=== PATIENT | male | born 1955 | race Caucasian/White ===

== ENCOUNTER → 2017-12-15 16:32 | Outpatient (CLI) | payer OTHER, SELFPAY ==
--- NOTE | 2017-12-15 16:47 | RAD_ITS ---
STUDY: X-RAY - RIGHT FOOT CLINICAL: Male, 62 years old. Pain TECHNIQUE: 3 view(s) of the foot. COMPARISON: None. FINDINGS: Normal talus, calcaneus, and tarsal bones. Normal visualized subtalar, talonavicular, calcaneocuboid, tarsal and tarsometatarsal articulations. Normal metatarsi. There is degenerative arthrosis of the metatarsophalangeal joint of the hallux . Normal tibial and fibular sesamoid bones. Normal interphalangeal joint of the great toe. Normal phalanges of the great toe. Normal second through fifth metatarsophalangeal joints. Normal interphalangeal joints and phalanges of the lesser toes. The soft tissue structures are unremarkable. There is no demonstrated fracture. RAD/Foot min 3 Views IMPRESSION: No acute fracture or dislocation. Prominent degenerative changes of the first metatarsophalangeal joint. Electronically Signed: Honorio Sabillon MD at 23:51 EDT , Service support ,
[2017-12-15 18:04] LABS: Anion Gap 10 (5-15); BUN 16 mg/dL (7-18); BUN/Creat Ratio 13.9 RATIO (10-20); Calcium,Total 9.5 mg/dL (8.5-10.1); Chloride 110 mmol/L (98-107); Creatinine, Serum 1.15 mg/dL (0.70-1.30); EST Glomerular Filtration Rate 69 mL/min (>60); Est Glom Filt Rate - Afr Amer 83 mL/min (>60); Glucose 91 mg/dL (74-106); Potassium 4.2 mmol/L (3.5-5.1); Sodium Level 143 mmol/L (136-145); Uric Acid 6.2 mg/dL (3.5-7.2)
== END ==
LOC: MFPLAB 16:33 → MTRAD 16:36
PROVIDERS: Family Provider Family Medicine; PCP Family Medicine; Visit Provider Family Medicine
DX: M19.071 Primary osteoarthritis, right ankle and foot (principal)
CPT/HCPCS: 36415; 73630; 80048; 84550

== ENCOUNTER → 2019-10-26 09:11 | Outpatient (CLI) | payer OTHER, SELFPAY ==
[2019-10-26 10:53] LABS: Anion Gap 5 (5-15); BUN 16 mg/dL (7-18); BUN/Creat Ratio 18.8 RATIO (10-20); Calcium,Total 8.7 mg/dL (8.5-10.1); Chloride 110 mmol/L (98-107); Cholesterol 166 mg/dL (200); Creatinine, Serum 0.85 mg/dL (0.70-1.30); EST Glomerular Filtration Rate 97 mL/min (>60); Est Glom Filt Rate - Afr Amer 117 mL/min (>60); Glucose 108 mg/dL (74-106); High Density Lipoprotein 31 mg/dL; PSA,Total - Annual Screen 0.62 ng/mL (0.00-4.00); Potassium 4.2 mmol/L (3.5-5.1); Sodium Level 141 mmol/L (136-145); Triglycerides 202 mg/dL; Very Low Density Lipoprotein 40 mg/dL (5-40)
== END ==
PROVIDERS: PCP Family Medicine; Referring Provider Family Medicine; Visit Provider Family Medicine
DX: Z00.00 Encounter for general adult medical examination without abnormal findings (principal)
CPT/HCPCS: 36415; 80048; 80061; 84153; 84403; G0103

== ENCOUNTER → 2020-06-23 15:19 | Outpatient (CLI) | payer OTHER, SELFPAY ==
--- NOTE | 2020-06-23 15:29 | MRI_ITS ---
STUDY: MRI BRAIN WITH AND WITHOUT CONTRAST (ATTENTION INTERNAL AUDITORY CANALS - I.A.C.''s) REASON FOR EXAM: Male, 64 years old. Left hearing loss for 5 years TECHNIQUE: Standardized multiplanar fat and water weighted pulse sequences were obtained. Yes YES contrast material was administered intravenously for the contrast portion of the examination. COMPARISON: None. FINDINGS: Normal bilateral temporal bones. Normal bilateral internal auditory canals. There is no demonstrated intracanalicular or cisternal vestibular schwannoma (acoustic neuroma). There is no enhancement of the bilateral VIIth or VIIIth cranial nerves. Normal bilateral cochlea, vestibules and semicircular canals. There is mild cerebral atrophy with widening of the extra-axial spaces and ventricular dilatation. There are a limited number of small white matter hyperintensities, distributed throughout the deep white matter tracts of the cerebral hemispheres, consistent with mild chronic white matter ischemic changes. There is no evidence for recent intracranial ischemia or other cause of cytotoxic edema on diffusion weighted imaging (DWI). No focal brain parenchymal lesion or abnormal or suspicious enhancement of the brain parenchyma or or meninges. Normal bilateral basal ganglia. Normal thalami. Normal flow voids within the major intracranial circulation suggesting patency by spin echo criteria. Normal venous enhancement. There is no enhancing intra-axial or extra-axial abnormality. There is no extra-axial fluid accumulation. Normal sella turcica, pituitary gland, infundibular stalk, optic chiasm and hypothalamus. Normal tectal plate and pineal gland. Normal midbrain, lucinda and medulla. Normal cerebellum. Normal basal cisterns. No demonstrated orbital abnormality, within the constraints of a routine brain study. There is moderate to severe bilateral ethmoid sinusitis. Mild mucosal thickening is present in the bilateral sphenoid and maxillary sinuses. Normal calvarium and skull base. Normal visualized soft tissue structures. Normal visualized upper cervical spine. MRI/Brain W/WO Contrast IMPRESSION: 1. Normal unenhanced and enhanced MRI of the bilateral internal auditory canals (I.A.C''s). 2. No focal brain parenchymal lesion or abnormal or suspicious enhancement of the brain parenchyma or or meninges. 3. Mild chronic ischemic changes. 4. No demonstrated acute infarct. Electronically Signed: Ramon Cat MD at 23:52 EST , Service support ,
[2020-06-23 15:56] LABS: CREATININE FINGERSTICK 1.1 mg/dL (0.70-1.30); EGFR FINGERSTICK > 60.0000 mL/min (>60)
== END ==
PROVIDERS: PCP Family Medicine; Referring Provider Otolaryngology Otolaryngology/Facial Plastic Surgery; Visit Provider Otolaryngology Otolaryngology/Facial Plastic Surgery
DX: H90.3 Sensorineural hearing loss, bilateral (principal)
CPT/HCPCS: 70553

== ENCOUNTER 2021-08-03 13:48 | Outpatient (CLI) | payer OTHER, SELFPAY ==
[2021-08-03 16:22] LABS: Vitamin D,25 Hydroxy 19.2 ng/mL
[2021-08-03 16:24] LABS: Anion Gap 4 (5-15); BUN 14 mg/dL (7-18); BUN/Creat Ratio 14.4 RATIO (10-20); Calcium,Total 9.3 mg/dL (8.5-10.1); Chloride 111 mmol/L (98-107); Cholesterol 169 mg/dL (200); Creatinine, Serum 0.97 mg/dL (0.70-1.30); EST Glomerular Filtration Rate 83 mL/min (>60); Est Glom Filt Rate - Afr Amer 100 mL/min (>60); Glucose 94 mg/dL (74-106); High Density Lipoprotein 32 mg/dL; PSA,Total - Annual Screen 0.86 ng/mL (0.00-4.00); Sodium Level 142 mmol/L (136-145); Triglycerides 129 mg/dL; Very Low Density Lipoprotein 26 mg/dL (5-40)
== END 2021-08-03 23:59 | disposition home or self-care (01) ==
PROVIDERS: PCP Family Medicine; Referring Provider Family Medicine; Visit Provider Family Medicine
DX: Z00.00 Encounter for general adult medical examination without abnormal findings (principal)
CPT/HCPCS: 36415; 80048; 80061; 82306; 84153; G0103

== ENCOUNTER → 2022-09-01 | Outpatient (CLI) | payer MEDICARE, OTHER, SELFPAY ==
[2022-09-01 10:32] LABS: Vitamin D,25 Hydroxy 55.9 ng/mL
[2022-09-01 10:34] LABS: Anion Gap 4 (5-15); BUN 20 mg/dL (7-18); BUN/Creat Ratio 20.8 RATIO (10-20); Chloride 108 mmol/L (98-107); Cholesterol 192 mg/dL (200); Creatinine, Serum 0.96 mg/dL (0.70-1.30); EST Glomerular Filtration Rate 83 mL/min (>60); Est Glom Filt Rate - Afr Amer 101 mL/min (>60); Glucose 102 mg/dL (74-106); High Density Lipoprotein 29 mg/dL; PSA,Total- Diagnostic 0.78 ng/mL (0.0-4.0); Sodium Level 140 mmol/L (136-145); Triglycerides 153 mg/dL; Very Low Density Lipoprotein 31 mg/dL (5-40)
== END | disposition home or self-care (01) ==
PROVIDERS: PCP Family Medicine; Referring Provider Family Medicine; Visit Provider Family Medicine
DX: Z00.00 Encounter for general adult medical examination without abnormal findings (principal)
CPT/HCPCS: 36415; 80048; 80061; 82306; 84153

== ENCOUNTER → 2023-07-27 | Outpatient (CLI) | payer MEDICARE, OTHER, SELFPAY ==
[2023-07-27 10:38] LABS: Anion Gap 8 (5-15); BUN 18 mg/dL (7-18); BUN/Creat Ratio 18.6 RATIO (10-20); Calcium,Total 8.8 mg/dL (8.5-10.1); Chloride 109 mmol/L (98-107); Cholesterol 131 mg/dL (200); Creatinine, Serum 0.97 mg/dL (0.70-1.30); EST Glomerular Filtration Rate 83 mL/min (>60); Est Glom Filt Rate - Afr Amer 100 mL/min (>60); Glucose 113 mg/dL (74-106); High Density Lipoprotein 27 mg/dL; Potassium 4.1 mmol/L (3.5-5.1); Sodium Level 145 mmol/L (136-145); Triglycerides 132 mg/dL; Very Low Density Lipoprotein 26 mg/dL (5-40)
--- OUTSIDE RECORDS SUMMARY | 2023-07-27 10:38 | XMS RPT_ITS | CCD ---
Author Name Unknown Address [address] [place] [id number] Organization [facility] Results Test Name Value Interpretation Reference Range Facil ity Summary Purpose Family History No Family History Records Found Advance Directives No Advanced Directives Records Found Additional Source Comments (unrecognized sect ion and content) No Status Records Found INFORMATION SOURCE (unrecogn ized section and content) FOR RECORDS PERTAINING TO PATIENTS WHO ARE OR HAVE BEEN ENROLLED IN A CHEMICAL DEPENDENCY/SUBSTANCEABUSE PROGRAM, SOME INFORMATION MAY BE OMITTED. This clinical summary was aggregated from multiple sources. Caution should be exercised in using it in the provision of clinical care. This summary normalizes information from multiple sources, and as a consequence, information in this document may materially change the coding, format and clinical context of patient data. In addition, data may be omitted in some cases. CLINICAL DECISIONS SHOULD BE BASED ON THE PRIMARY CLINICAL RECORDS. [employer] provides no warranty or guarantee of the accuracy or completeness of information in this document.
== END | disposition home or self-care (01) ==
LOC: MFPLAB 09:25
PROVIDERS: PCP Family Medicine; Visit Provider Family Medicine
DX: Z00.00 Encounter for general adult medical examination without abnormal findings (principal); R79.89 Other specified abnormal findings of blood chemistry
CPT/HCPCS: 36415; 80048; 80061

== ENCOUNTER 2023-09-16 07:53 | Day surgery (SDC) | payer MEDICARE, OTHER, SELFPAY ==
[2023-09-16 08:15] VITALS: BP 121/56; PULSE 60; RESP 18; TEMP 36.8; O2SAT 96; BMI 29.6
[2023-09-16] MEDS: Lactated Ringers 1,000 ML 15 ML IV (08:23)
--- NOTE | 2023-09-16 08:44 | HP.PCM_ITS ---
HPI - General HPI Narrative ISELA DINH, is a 68 M who presents for screening colonoscopy. The patient says his last colonoscopy was about 15 years ago and was normal. He denies any abdominal pain or blood in stool. He has no family history of colon cancer. [facility] Medical History (Updated 09/14/23 @ 10:20 by Claudia Mccoy) Alcohol use Anxiety Arthritis Back pain Depression History of stress test Non-smoker Wears glasses Home Medications cholecalciferol (vitamin D3) 50 mcg (2,000 unit) capsule 50 mcg PO DAILY 07/29/23 [History Last Taken 09/14/23] hydroxyzine HCl 50 mg tablet 50 mg PO .QD PRN anxiety 07/29/23 [History Last Taken Unknown] sertraline 100 mg tablet 100 mg PO DAILY 07/29/23 [History Last Taken 09/14/23] calcium citrate 315 mg calcium-vitamin D3 6.25 mcg (250 unit) tablet (Citracal + Vitamin D Maximum) 1 tab PO DAILY 09/14/23 [History Last Taken 09/14/23] Allergy/AdvReac Type Severity Reaction Status Date / Time No Known Allergies Allergy Verified 09/16/23 08:12 Family History (Updated 07/29/23 @ 09:03 by Venecia Yee) Mother Breast cancer Surgical History (Updated 07/29/23 @ 09:02 by Venecia Yee) Hx of colonoscopy Social History (Updated 07/29/23 @ 10:13 by Venecia Yee) household members: spouse current occupational status: employed current occupation: Contractor Smoking Status: Never smoker details: Occasional alcohol substance use type: does not use Past Medical/Surgical History Planned Operation Planned Operative Procedure/s: COLONOSCOPY Previous Hospitalizations/Surgeries HX Hospitalizations: No Any Problems With Anesthesia: No You/Your Family Experience Fever (Hyperthermia) With Anes: No Cholinesterase deficiency: No Cardiovascular Hx Hypertension: No Respiratory Hx Sleep Apnea: Yes (DOESN'T WEAR MACHINE) CPAP: No BIPAP: No Hx Respiratory Tract Infection/Cold (presently): No Result (for STOP score): Positive Smoking Status: Never smoker Neurological Does patient have nerve stimulator: No Miscellaneous Recent Exposure to Contagious Disease: No Allergies No Known Allergies Allergy (Verified 09/16/23 08:12) Discharge Is Pt Admitted From a Care Home, or a Long-Term: No After D/C, Where Do you Plan to Go: Return Home Vital Signs Vital Signs Vital Signs: 09/16/23 08:14 09/16/23 08:15 Temperature 98.2 F Temperature Source Temporal Pulse Rate 60 Respiratory Rate 18 Respiratory Pattern Normal Blood Pressure 121/56 H Blood Pressure Mean 77 Blood Pressure Source Monitor Blood Pressure Position Semi-Fowlers Blood Pressure Location Right Arm Pulse Ox 96 Oxygen Delivery Method Room Air Weight Weight: 195 lb Body Mass Index (BMI) 29.6 Physical Exam Const alert and oriented x3 HEENT normocephalic Eyes PERRL Resp normal respiratory effort and normal air movement Cardio regular rate and regular rhythm GI soft to palpation, non-tender and non-distended Extremity normal to inspection Assessment & Plan Assessment/Plan (1) Encounter for screening for malignant neoplasm of colon: PLAN: I explained endoscopy in detail to the patient. I explained the risks including but not limited to stroke or heart attack with anesthesia, perforation of the GI tract, bleeding, infection. I explained that any of these could necessitate further emergency surgery. The patient understands and all questions were answered sufficiently. The patient wishes to proceed with procedure. Timur Sheldon MD Pager: [facility] [address] [place] [address], [address] [place] [address] Office: Surgery Risks - Colonoscopy Risks Include but are not Limited To: Risks include but are not limited to: Bleeding, perforation requiring further surgery, inability to complete colonoscopy requiring barium enema.
[2023-09-16 09:08] VITALS: BP 111/57; BP 121/56; PULSE 65; RESP 16; TEMP 36.2; O2SAT 93
[2023-09-16 09:10] VITALS: BP 110/57; BP 121/56; PULSE 64; RESP 16; O2SAT 92
--- NOTE | 2023-09-16 09:13 | OP.COLON_ITS ---
Patient Name: Tim Deluca Procedure Date: 09/16/2023 8:48 AM Date of : 1955 Age: 68 Procedure: Colonoscopy Indications: Screening for colorectal malignant neoplasm Providers: Timur Sheldno MD Referring MD: Alvarez Weber MD Medicines: Propofol per Anesthesia Patient Profile: This is a 68 year old male. Refer to note in patient chart for documentation of history and physical. Last Colonoscopy: more than 10 years ago. Complications: No immediate complications. Procedure: Pre-Anesthesia Assessment: - Prior to the procedure, a History and Physical was performed, and patient medications and allergies were reviewed. The patient's tolerance of previous anesthesia was also reviewed. The risks and benefits of the procedure and the sedation options and risks were discussed with the patient. All questions were answered, and informed consent was obtained. Prior Anticoagulants: The patient has taken no anticoagulant or antiplatelet agents. After reviewing the risks and benefits, the patient was deemed in satisfactory condition to undergo the procedure. After I obtained informed consent, the scope was passed under direct vision. Throughout the procedure, the patient's blood pressure, pulse, and oxygen saturations were monitored continuously. The pediatric colonoscope was introduced through the anus and advanced to the cecum, identified by appendiceal orifice and ileocecal valve. The colonoscopy was performed without difficulty. The patient tolerated the procedure well. The quality of the bowel preparation was good. The ileocecal valve, appendiceal orifice, and rectum were photographed. Scope In: 8:56:00 AM Scope Withdrawal Time 0 hours 6 minutes 5 seconds Scope Out: 9:05:13 AM Total Procedure Duration Time 0 hours 9 minutes 13 seconds Findings: The entire examined colon appeared normal on direct and retroflexion views. Impression: - The entire examined colon is normal on direct and retroflexion views. - No specimens collected. Recommendation: - Discharge patient to home. - Resume previous diet. - Continue present medications. - Repeat colonoscopy in 10 years for screening purposes. Procedure Code(s): --- Professional --- 25334, Colonoscopy, flexible; diagnostic, including collection of specimen(s) by brushing or washing, when performed (separate procedure) Diagnosis Code(s): --- Professional --- Z12.11, Encounter for screening for malignant neoplasm of colon CPT copyright 2021 [employer]. All rights reserved. The codes documented in this report are preliminary and upon disc ruler operator review may be revised to meet current compliance requirements. Timur Sheldon MD 09/16/2023 9:12:42 AM This report has been signed electronically. Number of Addenda: 0 Note Initiated On: 09/16/2023 8:48 AM
--- NOTE | 2023-09-16 09:13 | OP.CCLET_ITS ---
09/16/2023 Alvarez Weber MD [address] [place] [address] Re : Colonoscopy procedure for Tim Deluca Dear Dr. Weber This procedure was performed on Saturday, September 16, 2023. My impressions and recommendations are as follows: Impressions : - The entire examined colon is normal on direct and retroflexion views. - No specimens collected. Recommendations : - Discharge patient to home. - Resume previous diet. - Continue present medications. - Repeat colonoscopy in 10 years for screening purposes. My findings are described in the full procedure note, which is enclosed. If I can be of further assistance, please feel free to contact me at Doctor phone number(s): , Work: . Sincerely, Timur Sheldon MD 09/16/2023 9:12:42 AM This report has been signed electronically.
[2023-09-16 09:15] VITALS: BP 101/57; BP 121/56; PULSE 61; RESP 16; O2SAT 92
[2023-09-16 09:20] VITALS: BP 117/79; BP 121/56; PULSE 52; RESP 16; TEMP 36.1; O2SAT 94
[2023-09-16 09:40] VITALS: BP 121/56
== END 2023-09-16 09:52 | disposition home or self-care (01) ==
LOC: EN 07:54 → AC 07:56
PROVIDERS: PCP Family Medicine; Referring Provider Family Medicine; Visit Provider Surgery
PROC: 0DJD8ZZ Inspection of Lower Intestinal Tract, Via Natural or Artificial Opening Endoscopic (ICD-10-PCS; CPT 45378; principal; 2023-09-16 08:40)
DX: Z12.11 Encounter for screening for malignant neoplasm of colon (principal); F41.9 Anxiety disorder, unspecified; F32.A Depression, unspecified; Z79.899 Other long term (current) drug therapy
CPT/HCPCS: G0121; J7120; J2405

== ENCOUNTER → 2025-01-18 | Outpatient (CLI) | payer MEDICARE, OTHER, SELFPAY ==
[2025-01-18 15:58] LABS: Anion Gap 11 (5-15); BUN 17 mg/dL (4-19); BUN/Creat Ratio 18.1 RATIO (10-20); Calcium,Total 9.4 mg/dL (7.6-11.0); Carbon Dioxide 21.0 mmol/L (21.0-32.0); Chloride 108 mmol/L (98-108); Cholesterol 164 mg/dL (<=200); Glucose 122 mg/dL (70-99); Low Density Lipoprotein Calc. 102 mg/dL; PSA,Total - Annual Screen 1.62 ng/mL (0.02-4.00); Potassium 3.9 mmol/L (3.3-5.1); Triglycerides 164 mg/dL; Very Low Density Lipoprotein 33 mg/dL (5-40); cholesterol:hdl ratio screen 5.66
--- OUTSIDE RECORDS SUMMARY | 2025-01-18 16:31 | XMS RPT_ITS | CCD ---
Author Organization [facility] Care Team Providers Care Applications Specialist Name Role Phone Dr. Alvarez Weber Primary Care Provider [phone] Venecia Yee Attending Provider Unavailable Dr. Alvarez Weber Referring Provider Dr. Timur Sheldon Attending Provider Dr. Timur Sheldon Other Provider Alvarez Weber Primary Care Unavailable Alvarez Weber Referring Unavailable Timur Sheldon Consulting Unavailable Timur Sheldon Attending Unavailable Timur Sheldon Attending Unavailable Alvarez Weber Primary Care Unavailable Alvarez Weber Referring Unavailable Alvarez Weber Primary Care Unavailable Alvarez Weber Attending Unavailable Alvarez Weber Primary Care Unavailable Venecia Yee Attending Unavailable Medications Current Medications Medication Drug Class(es) Dates Sig (Normalized) Sig (Original) calcium citrate 1500 mg / cholecalciferol 250 unt oral tablet (1 source) Vitamin D Start: 09-14-2023 take 1 tablet by mouth once daily Calcium Citrate-Vitamin D3 (Citracal + D Maximum) 315 mg-6.25 mcg (250 unit) tablet Active 1 TABLET PO DAILY September 14, 2023 12:00am cholecalciferol 0.05 mg oral capsule (2 sources) Vitamin D Start: 07-29-2023 take 50 ug by mouth once daily Cholecalciferol (Vitamin D3) Active 50 MCG PO DAILY July 29, 2023 12:00am hydrOXYzine hydrochloride 50 mg oral tablet (2 sources) Antihistamine Start: 07-29-2023 take 50 mg by mouth once daily Hydroxyzine Hcl Active 50 MG PO .QD July 29, 2023 12:00am sertraline 100 mg oral tablet (2 sources) Serotonin Reuptake Inhibitor Start: 07-29-2023 take 100 mg by mouth once daily Sertraline Active 100 MG PO DAILY July 29, 2023 12:00am Problems Problem Classification Problem Date Documented Da te Episodic/Chronic Other screening for suspected conditions (not mental disorders or infectious disease) (5 sources) Patient encounter status; Translations: [Encounter for screening for malignant neoplasm of colon] Onset: 09-20-2023 07-29-2023 Episodic Results Test Name Value Interpretation Reference Range Facility Colonoscopy Reporton 024 Colonoscopy Report [facility] Medical Records Department [address] [place] [address] Colonoscopy Report MR#: [id number] Acct: [id number] Name: TIM DINH Rep #: [id number] : 1955 68 From: Timur Sheldon MD PCP: Dr. Alvarez Weber MD Status:[facility] Patient Name: Tim Dinh Procedure Date: 09/16/2023 8:48 AM Date of : 1955 Age: 68 Procedure: Colonoscopy Indications: Screening for colorectal malignant neoplasm Providers: Timur Sheldon MD Referring MD: Alvarez Weber MD Medicines: Propofol per Anesthesia Patient Profile: This is a 68 year old male. Refer to note in patient chart for documentation of history and physical. Last Colonoscopy: more than 10 years ago. Complications: No immediate complications. Procedure: Pre-Anesthesia Assessment: - Prior to the procedure, a History and Physical was performed, and patient medications and allergies were reviewed. The patient's tolerance of previous anesthesia was also reviewed. The risks and benefits of the procedure and the sedation options and risks were discussed with the patient. All questions were answered, and informed consent was obtained. Prior Anticoagulants: The patient has taken no anticoagulant or antiplatelet agents. After reviewing the risks and benefits, the patient was deemed in satisfactory condition to undergo the procedure. After I obtained informed consent, the scope was passed under direct vision. Throughout the procedure, the patient's blood pressure, pulse, and oxygen saturations were monitored continuously. The pediatric colonoscope was introduced through the anus and advanced to the cecum, identified by appendiceal orifice and ileocecal valve. The colonoscopy was performed without difficulty. The patient tolerated the procedure well. The quality of the bowel preparation was good. The ileocecal valve, appendiceal orifice, and rectum were photographed. Scope In: 8:56:00 AM Scope Withdrawal Time 0 hours 6 minutes 5 seconds Scope Out: 9:05:13 AM Total Procedure Duration Time 0 hours 9 minutes 13 seconds Findings: The entire examined colon appeared normal on direct and retroflexion views. Impression: - The entire examined colon is normal on direct and retroflexion views. - No specimens collected. Recommendation: - Discharge patient to home. - Resume previous diet. - Continue present medications. - Repeat colonoscopy in 10 years for screening purposes. Procedure Code(s): --- Professional --- 02711, Colonoscopy, flexible; diagnostic, including collection of specimen(s) by brushing or washing, when performed (separate procedure) Diagnosis Code(s): --- Professional --- Z12.11, Encounter for screening for malignant neoplasm of colon CPT copyright 2021 [employer]. All rights reserved. The codes documented in this report are preliminary and upon personal consultant review may be revised to meet current compliance requirements. Timur Sheldon MD 09/16/2023 9:12:42 AM This report has been signed electronically. Number of Addenda: 0 Note Initiated On: 09/16/2023 8:48 AM 09/16/23912 Date Timur Sheldon MD Cosigner Signature: Date (if indicated) CC: Dr. Timur Sheldon MD; Dr. Alvarez Weber MD Date Dictated: 09/16/2348 Date Transcribed: Cadd Instructor: AC Signed Normal [facility] Basic Metabolic Profile (BMP )on 07-27-2023 BUN/CRE 18.6 RATIO Normal 10-20 [facility] Comment on above: Performed By: #### L 500.4100, L500.2500 #### [facility] [address] [place], [place], [id number] [place],Total 8.8 mg/dL Normal 8.5-10.1 [facility] Comment on above: Performed By: #### L 500.4100, L500.2500 #### [facility] [address] [place], [address] Chloride [Moles/Vol] 109 mmol/L High 98-107 [facility] Comment on above: Performed By: #### L 500.4100, L500.2500 #### [facility] [address] [place], [address] CO2 [Moles/Vol] 28.0 mmol/L Normal 21.0-32.0 [facility] Comment on above: Performed By: #### L 500.4100, L500.2500 #### [facility] [address] [place], [address] Creatinine [Mass/Vol] 0.97 mg/dL Normal 0.70-1.30 [facility] Comment on above: Result Comment: The validity of the calculated GFR GFRAA in patients over 70 years has not been determined. Clinical correlation is essential. Performed By: #### L 500.4100, L500.2500 #### [facility] [address] [place], [address] EST GFR - AA 100 mL/min Normal >60 [facility] Comment on above: Result Comment: Afri can [place] GFR Calc Performed By: #### L 500.4100, L500.2500 #### [facility] [address] [place], [address] GAP 8 Normal 5-15 [facility] Comment on above: Performed By: #### L 500.4100, L500.2500 #### [facility] [address] [place], [address] GFR/1.73 sq M.predicted among non-blacks MDRD (S/P/Bld) [Vol rate/Area] 83 mL/min/{1.73_m2} Normal >60 [facility] Comment on above: Result Comment: Non- GFR Calc Performed By: #### L 500.4100, L500.2500 #### [facility] [address] [place], [address] Glucose [Mass/Vol] 113 mg/dL High 74-106 [facility] Comment on above: Result Comment: Fast ing Glucose result from 100 to 125 mg/dL suggests IMPAIRED HOMEOSTASIS per A.D.A. criteria. Performed By: #### L 500.4100, L500.2500 #### [facility] [address] [place], [address] Potassium [Moles/Vol] 4.1 mmol/L Normal 3.5-5.1 [facility] Comment on above: Performed By: #### L 500.4100, L500.2500 #### [facility] [address] [place], [address] Sodium [Moles/Vol] 145 mmol/L Normal 136-145 [facility] Comment on above: Performed By: #### L 500.4100, L500.2500 #### [facility] [address] [place], [address] Urea nitrogen [Mass/Vol] 18 mg/dL Normal 7-18 [facility] Comment on above: Performed By: #### L 500.4100, L500.2500 #### [facility] [address] [place], [address] Basophil percentageOrdered B y: Alvarez Weber on 07-27-2023 Chloride [Moles/Vol] 109 mmol/L 98-107 [facility] Cholesterol [Mass/Vol] 131 mg/dL <200 [facility] Comment on above: <200 mg/dL Desirable 200-240 mg/dL Borderline >240 mg/dL High Risk Glucose [Mass/Vol] 113 mg/dL 74-106 [facility] Comment on above: Fasting Glucose resu lt from 100 to 125 mg/dL suggests IMPAIRED HOMEOSTASIS per A.D.A. criteria. Potassium [Moles/Vol] 4.1 mmol/L 3.5-5.1 [facility] Sodium [Moles/Vol] 145 mmol/L 136-145 [facility] Triglyceride [Mass/Vol] 132 mg/dL <199 [facility] Comment on above: The drugs N-Acetylcy steine and Metamizole may falsely depress this assay.Serum Triglycerides Reference Interval Normal <150 mg/dL Borderline high 150 - 199 mg/dL High 200 - 499 mg/dL Very High > or = 500 mg/dL Laboratory - Chemistry and C hemistry - challengeOrdered By: Alvarez Weber on 07-27-2023 Cholesterol in HDL [Mass/Vol] 27 mg/dL >40 [facility] Comment on above: The drugs N-Acetylcy steine and Metamizole may falsely depress this assay. Reference Range HDL <40 mg/dL Low HDL Cholesterol HDL >or= 60 mg/dL High HDL Cholesterol Cholesterol in LDL [Mass/Vol] 78 mg/dL 0-130 [facility] CO2 [Moles/Vol] 28.0 mmol/L 21.0-32.0 [facility] Urea nitrogen/Creatinine [Mass ratio] 18.6 mg/mg 10-20 [facility] Lipid Profileon 07-27-2023 Cholesterol [Mass/Vol] 131 mg/dL Normal 200 [facility] Comment on above: Result Comment: <200 mg/dL Desirable 200-240 mg/dL Borderline >240 mg/dL High Risk Performed By: #### L 500.4100, L500.2500 #### [facility] [address] [place], [address] Cholesterol in HDL [Mass/Vol] 27 mg/dL Low [facility] Comment on above: Result Comment: The drugs N-Acetylcysteine and Metamizole may falsely depress this assay. Reference Range HDL <40 mg/dL Low HDL Cholesterol HDL >or= 60 mg/dL High HDL Cholesterol Performed By: #### L 500.4100, L500.2500 #### [facility] [address] [place], [address] Cholesterol in LDL [Mass/Vol] 78 mg/dL Normal 0-130 [facility] Comment on above: Performed By: #### L 500.4100, L500.2500 #### [facility] [address] [place], [address] Cholesterol in VLDL [Mass/Vol] 26 mg/dL Normal 5-40 [facility] Comment on above: Performed By: #### L 500.4100, L500.2500 #### [facility] [address] [place], [address] Triglyceride [Mass/Vol] 132 mg/dL Normal [facility] Comment on above: Result Comment: The drugs N-Acetylcysteine and Metamizole may falsely depress this assay. Serum Triglycerides Reference Interval Normal <150 mg/dL Borderline high 150 - 199 mg/dL High 200 - 499 mg/dL Very High > or = 500 mg/dL Performed By: #### L 500.4100, L500.2500 #### [facility] [address] [place], [address] No Panel InformationOrdered By: Alvarez Weber on 07-27-2023 Estimated GFR (MDRD) Amer 100 mL/min >60 [facility] Comment on above: GFR Calc Estimated GFR (MDRD) Non-Af Amer 83 mL/min >60 [facility] Comment on above: Non- GFR Calc VLDL Cholesterol 26 mg/dL 5-40 [facility] Serum or plasma calcium erick urement (mass/volume)Ordered By: Alvarez Weber on 07-27-2023 Calcium [Mass/Vol] 8.8 mg/dL 8.5-10.1 [facility] Serum or plasma creatinine m easurement (mass/volume)Ordered By: Alvarez Weber on 07-27-2023 Creatinine [Mass/Vol] 0.97 mg/dL 0.70-1.30 [facility] Comment on above: The validity of the calculated GFR & GFRAA in patients over 70 years has not been determined. Clinical correlation is essential. Serum or plasma urea nitroge n measurement (mass/volume)Ordered By: Alvarez Weber on 07-27-2023 Urea nitrogen [Mass/Vol] 18 mg/dL 7-18 [facility] Thin prep Papanicolaou smear with manual screeningOrdered By: Alvarez Weber on 07-27-2023 Thin prep Papanicolaou smear with manual screening 8 5-15 [facility] Basophil percentageOrdered B y: Dr. Weber on 09-01-2022 Chloride [Moles/Vol] 108 mmol/L 98-107 [facility] Cholesterol [Mass/Vol] 192 mg/dL <200 [facility] Comment on above: <200 mg/dL Desirable 200-240 mg/dL Borderline >240 mg/dL High Risk Glucose [Mass/Vol] 102 mg/dL 74-106 [facility] Comment on above: Fasting Glucose resu lt from 100 to 125 mg/dL suggests IMPAIRED HOMEOSTASIS per A.D.A. criteria. Potassium [Moles/Vol] 4.0 mmol/L 3.5-5.1 [facility] Sodium [Moles/Vol] 140 mmol/L 136-145 [facility] Triglyceride [Mass/Vol] 153 mg/dL <199 [facility] Comment on above: The drugs N-Acetylcy steine and Metamizole may falsely depress this assay.Serum Triglycerides Reference Interval Normal <150 mg/dL Borderline high 150 - 199 mg/dL High 200 - 499 mg/dL Very High > or = 500 mg/dL Laboratory - Chemistry and C hemistry - challengeOrdered By: Dr. Weber on 09-01-2022 CO2 [Moles/Vol] 28.0 mmol/L 21.0-32.0 [facility] Urea nitrogen/Creatinine [Mass ratio] 20.8 mg/mg 10-20 [facility] No Panel InformationOrdered By: Dr. Weber on 09-01-2022 Estimated GFR (MDRD) Amer 101 mL/min >60 [facility] Comment on above: GFR Calc Estimated GFR (MDRD) Non-Af Amer 83 mL/min >60 [facility] Comment on above: Non- GFR Calc Prostate Specific Antigen Total 0.78 ng/mL 0.0-4.0 [facility] Comment on above: This test was perfor med using the TPSA assay method for the[employer] chemistry system. Values obtained with differentassay methods cannot be used interchangably.When changing PSA assays in the course of monitoring apatient, additional sequential testing should be carriedout to confirm baseline values. Vitamin D 25-Hydroxy 55.9 ng/mL [facility] Comment on above: Vitamin D 25(OH) Sta tus Range Deficiency <20 ng/mL (50nmol/L) Insufficiency 20 - 30 ng/mL (50 - 75 nmol/L) Sufficiency 30 - 100 ng/mL (75 - 250 nmol/L) Toxicity >100 ng/mL (>250 nmol/L) Serum or plasma calcium erick urement (mass/volume)Ordered By: Dr. Weber on 09-01-2022 Calcium [Mass/Vol] 9.0 mg/dL 8.5-10.1 [facility] Serum or plasma cholesterol in HDL measurement (mass/volume)Ordered By: Dr. Weber on 09-01-2022 Cholesterol in HDL [Mass/Vol] 29 mg/dL >40 [facility] Comment on above: The drugs N-Acetylcy steine and Metamizole may falsely depress this assay. Reference Range HDL <40 mg/dL Low HDL Cholesterol HDL >or= 60 mg/dL High HDL Cholesterol Serum or plasma cholesterol in VLDL measurement (mass/volume)Ordered By: Dr. Weber on 09-01-2022 Cholesterol in VLDL [Mass/Vol] 31 mg/dL 5-40 [facility] Serum or plasma creatinine m easurement (mass/volume)Ordered By: Dr. Weber on 09-01-2022 Creatinine [Mass/Vol] 0.96 mg/dL 0.70-1.30 [facility] Comment on above: The validity of the calculated GFR & GFRAA in patients over 70 years has not been determined. Clinical correlation is essential. Serum or plasma low density lipoprotein (LDL) cholesterol measurement (mass/volume)Ordered By: Dr. Weber on 09-01-2022 Cholesterol in LDL [Mass/Vol] 132 mg/dL 0-130 [facility] Serum or plasma urea nitroge n measurement (mass/volume)Ordered By: Dr. Weber on 09-01-2022 Urea nitrogen [Mass/Vol] 20 mg/dL 7-18 [facility] Thin prep Papanicolaou smear with manual screeningOrdered By: Dr. Weber on 09-01-2022 Thin prep Papanicolaou smear with manual screening 4 5-15 [facility] Basophil percentageon 03-21- 2022 Chloride [Moles/Vol] 111 mmol/L 98-[address] [facility] [place]: Cholesterol [Mass/Vol] 169 mg/dL <200 [facility]: Comment on above: <200 mg/dL Desirable 200-240 mg/dL Borderline >240 mg/dL High Risk Glucose [Mass/Vol] 94 mg/dL 74-106 [facility] Work Phone: Potassium [Moles/Vol] 4.0 mmol/L 3.5-5.1 [facility] Phone: Sodium [Moles/Vol] 142 mmol/L 136-145 [facility] Work Phone: Triglyceride [Mass/Vol] 129 mg/dL [facility] Work Phone: Comment on above: The drugs N-Acetylcy steine and Metamizole may falsely depress this assay.Serum Triglycerides Reference Interval Normal <150 mg/dL Borderline high 150 - 199 mg/dL High 200 - 499 mg/dL Very High > or = 500 mg/dL Laboratory - Chemistry and C hemistry - challengeon 08-03-2021 CO2 [Moles/Vol] 27.0 mmol/L 21.0-32.0 [facility] Work Phone: Urea nitrogen/Creatinine [Mass ratio] 14.4 mg/mg 10-20 [facility] Work Phone: No Panel Informationon 08-03 Estimated GFR (MDRD) Amer 100 mL/min >60 [facility] Work Phone: Comment on above: GFR Calc Estimated GFR (MDRD) Non-Af Amer 83 mL/min >60 [facility] Work Phone: Comment on above: Non- GFR Calc Prostate Specific Antigen Screen 0.86 ng/mL 0.00-4.00 [facility] Work Phone: Comment on above: This test was perfor med using the TPSA assay method for the[employer] chemistry system. Values obtained with differentassay methods cannot be used interchangably.When changing PSA assays in the course of monitoring apatient, additional sequential testing should be carriedout to confirm baseline values. Vitamin D 25-Hydroxy 19.2 ng/mL [facility] Work Phone: Comment on above: Vitamin D 25(OH) Sta tus Range Deficiency <20 ng/mL (50nmol/L) Insufficiency 20 - 30 ng/mL (50 - 75 nmol/L) Sufficiency 30 - 100 ng/mL (75 - 250 nmol/L) Toxicity >100 ng/mL (>250 nmol/L) Serum or plasma calcium erick urement (mass/volume)on 08-03-2021 Calcium [Mass/Vol] 9.3 mg/dL 8.5-10.1 [facility] Work Phone: Serum or plasma cholesterol in HDL measurement (mass/volume)on 08-03-2021 Cholesterol in HDL [Mass/Vol] 32 mg/dL [facility] Work Phone: Comment on above: The drugs N-Acetylcy steine and Metamizole may falsely depress this assay. Reference Range HDL <40 mg/dL Low HDL Cholesterol HDL >or= 60 mg/dL High HDL Cholesterol Serum or plasma cholesterol in VLDL measurement (mass/volume)on 08-03-2021 Cholesterol in VLDL [Mass/Vol] 26 mg/dL 5-40 [facility] Work Phone: Serum or plasma creatinine m easurement (mass/volume)on 08-03-2021 Creatinine [Mass/Vol] 0.97 mg/dL 0.70-1.30 [facility] Work Phone: Comment on above: The validity of the calculated GFR & GFRAA in patients over 70 years has not been determined. Clinical correlation is essential. Serum or plasma low density lipoprotein (LDL) cholesterol measurement (mass/volume)on 08-03-2021 Cholesterol in LDL [Mass/Vol] 111 mg/dL 0-130 [facility] Work Phone: Serum or plasma urea nitroge n measurement (mass/volume)on 08-03-2021 Urea nitrogen [Mass/Vol] 14 mg/dL 7-18 [facility] Work Phone: Thin prep Papanicolaou smear with manual screeningon 08-03-2021 Thin prep Papanicolaou smear with manual screening 4 5-15 [facility] Work Phone: CNCOon 01-24-2019 CNCO Letter Text Normal [facility] PROGRESSon 01-17-2019 PROGRESS HNO ID: [id number] Author: Rock Camacho Service: ? Author Type: Physician Type: Progress Notes Filed: 01/17/2019 3:11 PM Note Text: 63 y/o male - refers to getting annual eye exams - no issues prior to recent events - ~ 1 month ago woke up with a fog over his right eye - found to have spontaneous hyphema from a lesion in iris - on presentation to [facility] it was noted that he had multiple iris nodules OU - pt was placed on glaucoma drops but has since d/c'd 1. Iris Flocculi, OU OS: 6:00-1:30 OD: 11:00-4:30 2. Microhemangioma within flocculi, right eye - pt had spontaneous hyphema OD - denies any straining, exercise, or trauma - no suggestion of process within the angle - On clinical exam no obvious signs of vascular process - FA anterior segment: hyperfluorescence within large Flocculi at 12 O'clock in right eye - NO cardiac symptoms 3. Glaucoma suspect, OU - IOP 24 OD, 18 OS - not currently on any drops Plan: - Microhemangioma identified as cause of hyphema in right eye on FA - Monitor for now, if recurrent hyphema, will consider argon laser treatment - Follow up with home provider for glaucoma suspect 4 weeks - RTC 1 year/ prn I have confirmed and edited as necessary the relevant ophthalmic history, ROS, and the neuro exam findings as obtained by others. I have seen and examined this patient. I have discussed the case and the management of this patient's care with the Resident/Fellow, if applicable. I also have reviewed and agree with the assessment and plan as stated above and agree with all of its relevant components. Rock Camacho MD January 17, 2019 3:10 PM Normal [facility] Vital Signs Date Time Vital Sign Value Performing Clinician Faci lity 09-16-2023 09:20-0400 Body temperature 97 [degF] Dr. Alvarez Weber Work Phone: [facility] 09-16-2023 09:20-0400 Diastolic blood pressure 79 mm[Hg] Dr. Alvarez Weber Work Phone: [facility] 09-16-2023 09:20-0400 Heart rate 52 /min Dr. Alvarez Weber Work Phone: [facility] 09-16-2023 09:20-0400 Respiratory rate 16 /min Dr. Alvarez Weber Work Phone: [facility] 09-16-2023 09:20-0400 SaO2% (BldA) [Mass fraction] 94 % Dr. Alvarez Weber Work Phone: [facility] 09-16-2023 09:20-0400 Systolic blood pressure 117 mm[Hg] Dr. Alvarez Weber Work Phone: [facility] 09-16-2023 08:15-0400 Body height 172.[address] Alvarez Weber Work Phone: [facility] 09-16-2023 08:15-0400 Body mass index (BMI) [Ratio] 29.6 kg/m2 Dr. Alvarez Weber Work Phone: [facility] 09-16-2023 08:15-0400 Body weight 88.[address] Alvarez Weber Work Phone: [facility] 07-29-2023 10:18-0400 Body height 172.[address] Alvarez Weber Work Phone: [facility] 07-29-2023 10:18-0400 Body mass index (BMI) [Ratio] 30.4 kg/m2 Dr. Alvarez Weber Work Phone: [facility] 07-29-2023 10:18-0400 Body weight 90.[address] Alvarez Weber Work Phone: [facility] Encounters Encounter Date Encounter Type Care Provider Facility Start: 09-16-2023 End: 09-16-2023 ambulatory Timur Sheldon Facility:[facility] Start: 09-16-2023 Non-patient / Non-visit Dr. Juan F Weber Work Phone: [facility] Start: 09-16-2023 End: 09-16-2023 Admission to same day surgery center Dr. Alvarez Weber Work Phone: [facility] Work Phone: Start: 09-16-2023 End: 09-16-[address] Alvarez Weber Work Phone: [facility] Work Phone: Start: 08-02-2023 Encounter for genera l adult medical examination without abnormal findings Alvarez Weber [facility] Start: 07-29-2023 ambulatory Alvarez Weber Facility:[facility] Start: 07-29-2023 Non-patient / Non-visit Dr. Juan F Weber Work Phone: [facility] Work Phone: Start: 07-27-2023 End: 07-27-[address] Alvarez Weber Work Phone: [facility] Work Phone: Start: 07-27-2023 End: 07-27-[address] Alvarez Weber Work Phone: [facility] Start: 09-01-2022 End: 09-01-2022 ambulatory [facility] Work Phone: Start: 09-01-2022 End: 09-01-2022 Patient encounter procedure [facility] Start: 08-03-2021 End: 08-03-2021 Patient encounter procedure [facility] Procedures Date Procedure Procedure Detail Performing Clinician Start: 09-16-[address] Alvarez morales Work Phone: Plan of Treatment Date Care Activity Detail Author Start: 09-16-2023 Patient discharge [facility] Colonoscopy [facility] Patient referral [facility] Work Phone: Payers Date Payer Category Payer Medicare [id number] 2023 Self-pay [id number] 2023 [id number] Unknown [id number] 2.16.8 [id number] Unknown [id number] 2.16.8 [id number] Unknown [id number] 2.16.8 [id number] Unknown [id number] 2.16.8 [id number] Social History Date Type Detail Facility [facility] Work Phone: Start: 1955 Sex Assigned At Male [facility] Start: 07-29-2023 End: 09-16-2023 Tobacco smoking status [facility] Unknown if ever smoked [facility] Goals Date Patient Goal Desired Activity /State Mental Status Date Assessment Result Facility 09-16-2023 Cognitive function Touch/Shaking [facility] Work Phone: Clinical Note 09-16-2023 Note Date & Type Note Facility 09-16-2023 Note [facility] Medical Records Department [address] [place] [address] History Physical Exam 09/16/23 0844 MR#: [id number] Acct: [id number] Name: TIM DINH Rep #: [id number] : 1955 68 From: Timur Sheldon MD PCP: Dr. Alvarez Weber MD Status:[facility] Location: [place] [address] HPI - General HPI Narrative TIM DINH, is a 68 M who presents for screening colonoscopy. The patient says his last colonoscopy was about 15 years ago and was normal. He denies any abdominal pain or blood in stool. He has no family history of colon cancer. [facility] Medical History (Updated 09/14/23 @ 10:20 by Claudia Mccoy) Alcohol use Anxiety Arthritis Back pain Depression History of stress test Non-smoker Wears glasses Home Medications cholecalciferol (vitamin D3) 50 mcg (2,000 unit) capsule 50 mcg PO DAILY 07/29/23 [History Last Taken 09/14/23] hydroxyzine HCl 50 mg tablet 50 mg PO .QD PRN anxiety 07/29/23 [History Last Taken Unknown] sertraline 100 mg tablet 100 mg PO DAILY 07/29/23 [History Last Taken 09/14/23] calcium citrate 315 mg calcium-vitamin D3 6.25 mcg (250 unit) tablet (Citracal + Vitamin D Maximum) 1 tab PO DAILY 09/14/23 [History Last Taken 09/14/23] Allergy/AdvReac Type Severity Reaction Status Date / Time No Known Allergies Allergy Verified 09/16/23 08:12 Family History (Updated 07/29/23 @ 09:03 by Venecia Yee) Mother Breast cancer Surgical History (Updated 07/29/23 @ 09:02 by Veneica Yee) Hx of colonoscopy Social History (Updated 07/29/23 @ 10:13 by Venecia Yee) household members: spouse current occupational status: employed current occupation: Contractor Smoking Status: Never smoker details: Occasional alcohol substance use type: does not use Past Medical/Surgical History Planned Operation Planned Operative Procedure/s: COLONOSCOPY Previous Hospitalizations/Surgeries HX Hospitalizations: No Any Problems With Anesthesia: No You/Your Family Experience Fever (Hyperthermia) With Anes: No Cholinesterase deficiency: No Cardiovascular Hx Hypertension: No Respiratory Hx Sleep Apnea: Yes (DOESN'T WEAR MACHINE) CPAP: No BIPAP: No Hx Respiratory Tract Infection/Cold (presently): No Result (for STOP score): Positive Smoking Status: Never smoker Neurological Does patient have nerve stimulator: No Miscellaneous Recent Exposure to Contagious Disease: No Allergies No Known Allergies Allergy (Verified 09/16/23 08:12) Discharge Is Pt Admitted From a Custodial, or a Alf: No After D/C, Where Do you Plan to Go: Return Home Vital Signs Vital Signs Vital Signs: 09/16/23 08:14 09/16/23 08:15 Temperature 98.2 F Temperature Source Temporal Pulse Rate 60 Respiratory Rate 18 Respiratory Pattern Normal Blood Pressure 121/56 H Blood Pressure Mean 77 Blood Pressure Source Monitor Blood Pressure Position Semi-Fowlers Blood Pressure Location Right Arm Pulse Ox 96 Oxygen Delivery Method Room Air Weight Weight: 195 lb Body Mass Index (BMI) 29.6 Physical Exam Const alert and oriented x3 HEENT normocephalic Eyes PERRL Resp normal respiratory effort and normal air movement Cardio regular rate and regular rhythm GI soft to palpation, non-tender and non-distended Extremity normal to inspection Assessment Plan Assessment/Plan (1) Encounter for screening for malignant neoplasm of colon: PLAN: I explained endoscopy in detail to the patient. I explained the risks including but not limited to stroke or heart attack with anesthesia, perforation of the GI tract, bleeding, infection. I explained that any of these could necessitate further emergency surgery. The patient understands and all questions were answered sufficiently. The patient wishes to proceed with procedure. Timur Sheldon MD Pager: [facility] [address] [place] [address], [address] [place] [address] Office: Surgery Risks - Colonoscopy Risks Include but are not Limited To: Risks include but are not limited to: Bleeding, perforation requiring further surgery, inability to complete colonoscopy requiring barium enema. 09/16/23 0845 Cosigner Signature (if applicable): CC: Dr. Timur Sheldon MD; Dr. Alvarez Weber MD Signed [facility] Procedure note 09-16-2023 Note Date & Type Note Facility 09-16-2023 Procedure note [facility] Procedure note 09-16-2023 Note Date & Type Note Facility 09-16-2023 Procedure note [facility] Evaluation note Note Date & Type Note Facility Evaluation note No assessment information availa ble [facility] Work Phone: Evaluation note Note Date & Type Note Facility Evaluation note Diagnosis Onset Date Encounter for screening for malignant neoplasm of colon acute [facility] Work Phone: History and physical note Note Date & Type Note Facility History and physical note Note Date/Time September 16, 2023 8:45am [facility] Medical Records Department [address] [place] [address] History & Physical Exam 09/16/23 0844 MR#: [id number] Acct: [id number] Name: TIM DINH Rep #:[id number] : 1955 68 From: Timur cardona MD PCP: Dr. Alvarez Weber MD Status:REG S DC Location: [place] [address] HPI - General HPI Narrative TIM DINH, is a 68 M who presents for screening colonoscopy. The patient says his last colonoscopy was about 15 years ago and was normal. He denies any abdominal pain or blood in stool. He has no family history of colon cancer. [facility] Medical History (Updated 09/14/23 @ 10:20 by Claudia Mccoy) Alcohol use Anxiety Arthritis Back pain Depression History of stress test Non-smoker Wears glasses Home Medications cholecalciferol (vitamin D3) 50 mcg (2,000 unit) capsule 50 mcg PO DAILY 07/29/23 [History Last Taken 09/14/23] hydroxyzine HCl 50 mg tablet 50 mg PO .QD PRN anxiety 07/29/23 [History Last Taken Unknown] sertraline 100 mg tablet 100 mg PO DAILY 07/29/23 [History Last Taken 09/14/23] calcium citrate 315 mg calcium-vitamin D3 6.25 mcg (250 unit) tablet (Citracal +Vitamin D Maximum) 1 tab PO DAILY 09/14/23 [History Last Taken 09/14/23] Allergy/AdvReac Type Severity Reaction Status Date / Time No Known Allergies Allergy Verified 09/16/23 08:12 Family History (Updated 07/29/23 @ 09:03 by Venecia Yee) Mother Breast cancer Surgical History (Updated 07/29/23 @ 09:02 by Venecia Yee) Hx of colonoscopy Social History (Updated 07/29/23 @ 10:13 by Venecia Yee) household members: spouse current occupational status: employed current occupation: Contractor Smoking Status: Never smoker details: Occasional alcohol substance use type: does not use Past Medical/Surgical History Planned Operation Planned Operative Procedure/s: COLONOSCOPY Previous Hospitalizations/Surgeries HX Hospitalizations: No Any Problems With Anesthesia: No You/Your Family Experience Fever (Hyperthermia) With Anes: No Cholinesterase deficiency: No Cardiovascular Hx Hypertension: No Respiratory Hx Sleep Apnea: Yes (DOESN'T WEAR MACHINE) CPAP: No BIPAP: No Hx Respiratory Tract Infection/Cold (presently): No Result (for STOP score): Positive Smoking Status: Never smoker Neurological Does patient have nerve stimulator: No Miscellaneous Recent Exposure to Contagious Disease: No Allergies No Known Allergies Allergy (Verified 09/16/23 08:12) Discharge Is Pt Admitted From a Custodial, or a Alf: No After D/C, Where Do you Plan to Go: Return Home Vital Signs Vital Signs Vital Signs: 09/16/23 08:14 09/16/23 08:15 Temperature 98.2 F Temperature Source Temporal Pulse Rate 60 Respiratory Rate 18 Respiratory Pattern Normal Blood Pressure 121/56 H Blood Pressure Mean 77 Blood Pressure Source Monitor Blood Pressure Position Semi-Fowlers Blood Pressure Location Right Arm Pulse Ox 96 Oxygen Delivery Method Room Air Weight Weight: 195 lb Body Mass Index (BMI) 29.6 Physical Exam Const alert and oriented x3 HEENT normocephalic Eyes PERRL Resp normal respiratory effort and normal air movement Cardio regular rate and regular rhythm GI soft to palpation, non-tender and non-distended Extremity normal to inspection Assessment & Plan Assessment/Plan (1) Encounter for screening for malignant neoplasm of colon: PLAN: I explained endoscopy in detail to the patient. I explained the risks including but not limited to stroke or heart attack with anesthesia, perforationof the GI tract, bleeding, infection. I explained that any of these could necessitate further emergency surgery. The patient understands and all questions were answered sufficiently. The patient wishes to proceed with procedure. Timur Sheldon MD Pager: [facility] [address] [place] [address], [address] [place] [address] Office: Surgery Risks - Colonoscopy Risks Include but are not Limited To: Risks include but are not limited to: Bleeding, perforation requiring further surgery, inability to complete colonoscopy requiring barium enema. 09/16/23 0845 <Electronically signed by Timur Sheldon MD> Cosigner Signature (if applicable): CC: Dr. Timur Sheldon MD; Dr. Alvarez Weber MD~ Signed [facility] Work Phone: Summary Purpose Family History No Family History Records Found Relationship Condition Age at Onset Recorded Date/T edward mother Malignant neoplasm of breast Unknown Advance Directives No Advanced Directives Records Found Advance Directive Response Recorded Date/ Time Name of Medical Power of Sales Operations Lead SYMONE JACKSON ON September 14, 2023 10:20am Living Will Yes September 14, 2023 10 :20am Power of Sales Operations Lead Yes September 14, 2023 10:20am Chief Complaint and Reason for Visit Chief Complaint Amb Documentation Chief Complaint Amb Documentation Reason for Visit Encounter for screen ing for malignant neoplasm of colon Additional Source Comments (unrecognized sect ion and content) No Status Records FoundNo Status Records Found INFORMATION SOURCE (unrecogn ized section and content) DATE CREATED AUTHOR 01/24/2019 [facility] DATE CREATED AUTHOR AUTHOR'S ORGANIZ ATION 09/21/2023 [facility] Goals (unrecognized section and content) Goals may be documented in a n alternate sectionGoals may be documented in an alternate sectionGoals may be documented in an alternate section Care Teams (unrecognized sec tion and content) Team Status: Active Member Role Status Dates Dr. Alvarez Weber MD Family Provider Active Dr. Alvarez Weber MD Primary Care Provider Active Team Status: Inactive Member Role Status Dates Dr. Alvarez Weber MD [facility], Attending Provider, Referring Provider Active Team Status: Active Member Role Status Dates Dr. Alvarez Weber MD Primary Care Provider Active [facility] Attending Provider Active Team Status: Inactive Member Role Status Dates Dr. Alvarez Weber MD Primary Care Provider, Attending Provider Active Team Status: Active Member Role Status Dates Dr. Alvarez Weber MD Primary Care Provider, Referring Provider Active Dr. Timur Sheldon MD Attending Provider, Other Provider Active Team Status: Inactive Member Role Status Dates Dr. Alvarez Weber MD Primary Care Provider, Referring Provider Active Dr. Timur Sheldon MD Attending Provider Active FOR RECORDS PERTAINING TO PATIENTS WHO ARE [...] BE BASED ON THE PRIMARY CLINICAL RECORDS. [facility] [employer] Complete [facility]. provides no warranty or guarantee of the accuracy or completeness of information in this document.
== END | disposition home or self-care (01) ==
LOC: MFPLAB 11:22
PROVIDERS: PCP Family Medicine; Visit Provider Family Medicine
DX: Z00.00 Encounter for general adult medical examination without abnormal findings (principal); Z12.5 Encounter for screening for malignant neoplasm of prostate
CPT/HCPCS: 36415; 80048; 80061; 84153; G0103